=== PATIENT | male | born 1990 | race Caucasian/White ===

== ENCOUNTER 2018-06-30 03:59 | Emergency (ER) | payer OTHER ==
[~2018-06-30] VITALS: Ht 162.6 cm; Wt 71.6 kg
[2018-06-30 04:04] VITALS: BP 126/65; PULSE 71; RESP 19; Ht 162.6 cm; Wt 71.6 kg
[2018-06-30] MEDS ORDERED: IBUPROFEN 600 MG TAB PO ONE (04:30)
[2018-06-30] MEDS ORDERED: DIPHENHYDRAMINE 25 MG CAP PO ONE (06:00)
[2018-06-30] MEDS ORDERED: NAPR-985 PO (06:08)
--- NOTE | 2018-07-02 21:46 | ERD ---
ER Documentation Chief Complaint Chief Complaint annie ra from street for back pain s/p fall from skateboard HPI 27-year-old male presented to the emergency department with complaints of right lower rib pain and right mid back pain after a fall from his skateboard which occurred just prior to arrival. He reports severe pain. He states he was under the influence of alcohol and methamphetamine at this time. He denies any head injury or loss of consciousness. He tried no medication for relief of symptoms. Pain is rated moderate to severe and worse with movement. ROS All systems reviewed and are negative except as per history of present illness. Medications Home Meds Active Scripts Naproxen* (Naprosyn*) 500 Mg Tablet, 500 MG PO BID PRN for PAIN AND/OR INFLAMMATION, #30 TAB Prov:ODALIS BYNUM PA-C 06/30/18 Allergies Allergies: Coded Allergies: No Known Allergy (Unverified , 06/27/12) PMhx/Soc Medical and Surgical Hx: pt denies Surgical Hx History of Surgery: No Anesthesia Reaction: No Hx Neurological Disorder: No Hx Respiratory Disorders: No Hx Cardiac Disorders: No Hx Psychiatric Problems: No Hx Miscellaneous Medical Probl: Yes (DM,Hep-C) Hx Alcohol Use: No Hx Substance Use: No Hx Tobacco Use: Yes (Cigarettes) Smoking Status: Current every day smoker Physical Exam Vitals Vital Signs Date Temp Pulse Resp B/P (MAP) Pulse Ox O2 O2 Flow FiO2 Time Delivery Rate 06/30/18 98.1 71 19 126/65 100 04:04 (85) Physical Exam Const: No acute distress Head: Atraumatic Eyes: Normal Conjunctiva ENT: Normal External Ears, Nose and Mouth. Neck: Full range of motion. No meningismus. Resp: Clear to auscultation bilaterally Cardio: Regular rate and rhythm, no murmurs Abd: Soft, non tender, non distended. Normal bowel sounds Ribs: Tenderness palpation of the right lower ribs. No ecchymosis. No crepitus. Skin: No petechiae or rashes Back: No midline or flank tenderness Ext: No cyanosis, or edema Neur: Awake and alert Psych: Normal Mood and Affect Results 24 hrs Current Medications Medications Dose Sig/Fabian Start Time Status Last (Trade) Ordered Route PRN Stop Time Admin Dose Reason Admin Ibuprofen 600 mg ONCE ONCE 06/30/18 DC 06/30/18 (Motrin) PO 04:30 04:21 06/30/18 04:31 25 mg ONCE ONCE 06/30/18 DC Diphenhydrami PO 06:00 ne HCl 06/30/18 06:01 (Benadryl) [place] [id number] Radiology Main Line: [phone] DIAGNOSTIC IMAGING REPORT Patient: ALANA CEE : 1990 Age: 27 Sex: M MR #: [id number] DOS: 06/30/18 0000 Ordering MD: ODALIS BYNUM PA-C Location: [facility] Room/Bed: PROCEDURE: Right rib series CLINICAL INDICATION: Trauma TECHNIQUE: 3 views right rib cage were obtained COMPARISON: None FINDINGS: There is no evidence of right rib fractures. Bony mineralization is normal without focal bony blastic or lytic lesions. Right lung clear without pleural effusion or pneumothorax. Right chest wall unremarkable. IMPRESSION: No evidence of right rib fractures. RPTAT:AAJJ Physician Nancy Date Time Electronically viewed and signed by Physician Nancy on 06/30/2018 05:08 BM/ CC: ODALIS BYNUM PA-C [id number] Procedures/MDM 27-year-old male presenting to the emergency department complaints of right lower rib pain after a fall from his skateboard which occurred just prior to arrival. Patient had no neurological deficits and he denied any head injury or loss of consciousness. He did have tenderness palpation of the right lower ribs. Right rib series was negative for any sign of fracture. Patient stable and appropriate for discharge and further outpatient management. He was in agreement with the diagnosis, plan, need for follow-up, return precautions. I doubt pneumothorax. I doubt significant chest wall injury or other emergencies. Departure Diagnosis: Primary Impression: Contusion of rib Additional Impression: Fall from skateboard Condition: Fair Patient Instructions: Rib Contusion Referrals: [facility] YOU HAVE RECEIVED A MEDICAL SCREENING EXAM AND THE RESULTS INDICATE THAT YOU DO NOT HAVE A CONDITION THAT REQUIRES URGENT TREATMENT IN THE EMERGENCY DEPARTMENT. FURTHER EVALUATION AND TREATMENT OF YOUR CONDITION CAN WAIT UNTIL YOU ARE SEEN IN YOUR DOCTORS OFFICE WITHIN THE NEXT 1-2 DAYS. IT IS YOUR RESPONSIBILITY TO MAKE AN APPOINTMENT FOR FOLOW-UP CARE. IF YOU HAVE A PRIMARY DOCTOR --you should call your primary doctor and schedule an appointment IF YOU DO NOT HAVE A PRIMARY DOCTOR YOU CAN CALL OUR PHYSICIAN REFERRAL HOTLINE AT IF YOU CAN NOT AFFORD TO SEE A PHYSICIAN YOU CAN CHOSE FROM THE FOLLOWING [facility] [address] [facility]. [facility] [address] [facility] [facility] [address] [facility] [address] [facility]. [facility] [address] [facility]. [facility]. [address] Additional Instructions: Call your primary care doctor TOMORROW for an appointment during the next 1-2 days.See the doctor sooner or return here if your condition worsens before your appointment time. ODALIS BYNUM PA-C July 02, 2018 21:46
== END 2018-06-30 07:51 | disposition left against medical advice (07) ==
LOC: FTE 03:59
DX: S20.211A Contusion of right front wall of thorax, initial encounter (principal); E11.9 Type 2 diabetes mellitus without complications; F17.210 Nicotine dependence, cigarettes, uncomplicated; V00.131A Fall from skateboard, initial encounter
CPT/HCPCS: 71100; Z7502; Z7610